=== PATIENT | male | born 1970 | race Caucasian/White ===

== ENCOUNTER → 2016-10-21 | Outpatient (CLI) | payer BC ==
[~2016-10-21] MED LIST: ACIPHEX PO; AMBIEN 10MG10 MG PO
== END ==
LOC: COL.RAD 07:01
DX: R16.0 Hepatomegaly, not elsewhere classified (principal); K76.0 Fatty (change of) liver, not elsewhere classified; R94.5 Abnormal results of liver function studies

== ENCOUNTER → 2016-11-03 | Outpatient (CLI) | payer SELFPAY | LOC: COL.RAD 12:20 | DX: M19.011 Primary osteoarthritis, right shoulder (principal); M21.821 Other specified acquired deformities of right upper arm; M75.111 Incomplete rotator cuff tear or rupture of right shoulder, not specified as traumatic | CPT/HCPCS: A9585; Q9967 ==

== ENCOUNTER 2017-09-24 10:50 | Emergency (ER) | payer SELFPAY ==
[~2017-09-24] VITALS: Ht 177.8 cm; Wt 118.2 kg
[2017-09-24 10:50] VITALS: TEMP 98.1
[~2017-09-24 10:50] MED LIST changes: -ACIPHEX PO; +ACIPHEX20 MG PO
[2017-09-24] MEDS ORDERED: NORCO 325 MG-51 TAB PO (12:54)
[2017-09-24 13:01] VITALS: BP 146/108; PULSE 99
== END 2017-09-24 13:09 | disposition home or self-care (01) ==
LOC: COL.ER 10:50
DX: S83.015A Lateral dislocation of left patella, initial encounter (principal); Z87.828 Personal history of other (healed) physical injury and trauma; X50.0XXA Overexertion from strenuous movement or load, initial encounter; Y99.0 Civilian activity done for income or pay
CPT/HCPCS: J3010; J7030; L1846

== ENCOUNTER → 2018-03-01 | Outpatient (REF) ==
[~2018-03-01] MED LIST changes: +NORCO 325 MG-51 TAB PO
== END ==
LOC: ZLAB.WCH 18:21
DX: Z01.89 Encounter for other specified special examinations (principal)